=== PATIENT | female | born 1955 | race Two or more races ===

== ENCOUNTER → 2022-09-24 | Day surgery (SDC) | payer OTHER, MEDICAID ==
[~2022-09-24] VITALS: Ht 162.6 cm; Wt 79.4 kg
[~2022-09-24] MED LIST: ACAR100T PO; ALLO300T2 PO; ASPI1TAB20 PO; ATOR20TA50 PO; CANA300T OR; COLC0.6T56 PO; CONJ ESTROGENS 0.625MG/GM VAG CRM 30GM PV ONE; FER325T PO; GLYCOPYRROLATE 0.2 MG/ML 1ML VIAL ONE; HYDR-4072 PO; HYDROmorphone HCL 2 MG/ML VL/or syr IV PRN; INSU100I47 SC; LEVEMIR SC; LIDOCAINE 1%-Mpf/Epinephrine 1:200,000 ONE; LIDOCAINE 2% (LOCAL ANESTH.) PF 5ml SDV ONE; LOSA25TA38 PO; MECL25CH38 PO; MIDAZOLAM HCL 2MG/2ML 2ml VIAL (1mg/ml) ONE; NEOSTIGMINE 1 MG/ML INJ (10mg/10ML VIAL) ONE; OMEP20TA PO; ONDANSETRON HCL 4 MG/2 ML VIAL IV PRN; ONDANSETRON HCL 4 MG/2 ML VIAL ONE; PREG100C PO; PROM25TA5 OR; PROPOFOL 10 MG/ML 20 ML IV ONE; ROCURONIUM 10MG/ML 10ML VIAL IV ONE; SENN-62 PO; ceFAZolin 1GM/50ML 100 ML IV ONE; fentaNYL CITRATE 100 MCG/2 ML VL ONE
[2022-09-24 11:04] LABS: Basophils # (auto) 0 10 ^3/uL (0-0.2); Basophils % (auto) 0.7 % (0.0-2.0); Eosinophils # (auto) 0.1 10 ^3/uL (0-0.8); Eosinophils % (auto) 2.1 % (0.0-7.0); Hematocrit 40.1 % (36.0-46.0); Hemoglobin 13.2 g/dL (12.2-16.2); Lymphocytes # (auto) 1.7 10 ^3/uL (0.4-5.4); Lymphocytes % (auto) 25.3 % (10.0-50.0); Mean Corpuscular Hemoglobin 32.3 pg (28.0-32.0); Mean Corpuscular Hgb Conc. 33.1 g/dL (32.0-36.0); Mean Corpuscular Volume 97.7 fL (80.0-100.0); Monocytes # (auto) 0.5 10 ^3/uL (0-1.3); Monocytes % (auto) 7.1 % (0.0-12.0); Neutrophils # (auto) 4.4 10 ^3/uL (1.6-8.6); Neutrophils % (auto) 64.8 % (37.0-80.0); Nucleated Red Blood Cells % 0.1 %; Red Cell Distribution Width 14.5 % (11.8-14.3); White Blood Cell 6.7 10^3/uL (4.4-10.8)
[2022-09-24 15:03] VITALS: BP 120/70
== END | disposition home or self-care (01) ==
LOC: SUR 09:01
PROVIDERS: ATTEND Urology
DX: N39.3 Stress incontinence (female) (male) (principal); N95.2 Postmenopausal atrophic vaginitis; Z20.822 Contact with and (suspected) exposure to COVID-19; E11.9 Type 2 diabetes mellitus without complications
CPT/HCPCS: 36415; 57288; 82962; 85025; J0690; J2001; J2250; J2405; J2704; J3010; U0003